=== PATIENT | male | born 2000 | race Caucasian/White ===

== ENCOUNTER 2024-03-15 08:27 | Observation (INO) ==
--- NOTE | 2024-03-15 08:33 | Emergency Department Note ---
History of Present Illness General Chief complaint: Abdominal Pain Stated complaint: LLQ Abd Pain Time Seen by Provider: 03/15/24 08:32 History of Present Illness Maximum Pain Intensity: 8 This is a 23-year-old male that presents to the emergency department via EMS with complaints of "left lower quadrant abdominal pain". The patient notes that today he awoke with sudden onset left lower quadrant abdominal pain. No trauma. No injury. He notes nausea but no vomiting. No diarrhea. Bowel movements have been regular. No history of kidney stones. No aggravating or alleviating factors. Patient denies any pertinent past medical history or surgeries. He notes history of penicillin allergy. Patient denies receiving any medicines in route here today. Home Medications Medication Instructions Recorded Confirmed Type dextroamphetamine-amphetamine 5 mg 0 mg PO DAILY 03/15/24 03/15/24 History tablet (Adderall) sertraline 25 mg tablet 25 mg PO DAILY 03/15/24 03/15/24 History Allergies Allergy/AdvReac Type Severity Reaction Status Date / Time Penicillins Allergy Severe Hives and Unverified 03/15/24 11:47 swelling Past Med/Surg History Problem List (Updated 03/15/24 @ 16:44 by Hebert Rosen PA-C) Hydronephrosis (Acute) Left ureteral calculus (Acute) Abdominal pain, acute, left lower quadrant (Acute) Ureterolithiasis Social History Smoking Status: Never smoker Preferred Language: Divehi Feels Safe at Home: Yes Review of Systems A total of 10 systems reviewed and were otherwise negative Physical Exam Vital Signs Vital Signs - 24 hr 03/15/24 08:29 03/15/24 09:00 03/15/24 10:08 Temperature 36.4 C L Temperature Source Oral Pulse Rate 110 H Pulse Rate [Apical] 110 H 110 H Respiratory Rate 18 18 14 Blood Pressure 138/88 Blood Pressure [Left Arm] 127/73 133/80 Blood Pressure Mean 104 Blood Pressure Mean [Left Arm] 91 97 Pulse Oximetry 100 100 98 Oxygen Delivery Method Room Air Room Air Room Air Sepsis New/Unexplained Change in Mental Status No Sepsis Action Taken by Nursing No Action Required 03/15/24 11:33 03/15/24 12:30 03/15/24 13:01 Temperature Temperature Source Pulse Rate Pulse Rate [Apical] 118 H 108 H 110 H Respiratory Rate 18 18 18 Blood Pressure Blood Pressure [Left Arm] 126/78 129/74 123/80 Blood Pressure Mean Blood Pressure Mean [Left Arm] 94 92 94 Pulse Oximetry 99 98 99 Oxygen Delivery Method Room Air Room Air Room Air Sepsis New/Unexplained Change in Mental Status Sepsis Action Taken by Nursing VITAL SIGNS - Vital signs and nursing notes were reviewed. Stable and afebrile. GENERAL - 23-year-old male appearing his stated age who appears to be in pain, laying in the position on the right side. Communicates well with provider and answers questions appropriately. SKIN - Without rashes. No meningeal or petechial rash. HEAD - NC/AT. EYES - PERRL with EOMI bilaterally. Sclera anicteric. EARS - No deformities of external structures noted on gross examination bilaterally. NOSE - Midline and without cyanosis. No epistaxis or purulent drainage noted. MOUTH/OROPHARYNX - Without perioral cyanosis. NECK - Neck with FROM. No nuchal rigidity. LUNGS - CTA CARDIAC - RRR ABDOMEN - Abdominal contour normal without pulsations or visible masses. BS normoactive all four quadrants. No tenderness, palpable masses, hepatosplenomegaly, or ascites noted. EXTREMITIES - No clubbing or peripheral cyanosis. +5/5 strength noted in UE/LE bilaterally. NEUROLOGIC - Cranial nerves grossly intact. PSYCH -alert, oriented and pleasant on exam Course Administered Medications Potassium Chloride (K Benji / Wtr) 10 meq in 100 mls @ 100 mls/hr IV Q[facility] Stop: 03/15/24 17:29 Last Admin: 03/15/24 15:49 Dose: 100 mls/hr Documented By: Infusion: 03/15/24 15:44 Dose: Infused Documented By: Admin: 03/15/24 14:44 Dose: 100 mls/hr Documented By: ROAXNN Potassium Chloride/Sodium Chloride (Normal Saline W/20 Meq Kcl) 20 meq in 1,000 mls @ 200 mls/hr IV .Q5H [facility] Stop: 03/16/24 14:38 Last Admin: 03/15/24 15:49 Dose: 200 mls/hr Documented By: STEPHAN Discontinued Medications Sodium Chloride (Nss) 1,000 mls @ 999 mls/hr IV .Q1H1M ONE Stop: 03/15/24 09:49 Last Infusion: 03/15/24 10:36 Dose: Infused Documented By: Admin: 03/15/24 09:03 Dose: 999 mls/hr Documented By: ROXANN Sodium Chloride (Nss) 1,000 mls @ 999 mls/hr IV .Q1H1M ONE Stop: 03/15/24 14:09 Last Infusion: 03/15/24 14:26 Dose: Infused Documented By: Admin: 03/15/24 13:25 Dose: 999 mls/hr Documented By: ROXANN Ioversol (Optiray 320 100ml) 94 ml IV ONCE ONE Stop: 03/15/24 09:45 Last Admin: 03/15/24 09:44 Dose: 94 ml Documented By: FAHAD Ketorolac Tromethamine (Ketorolac Tromethamine 15 Mg/Ml Vial) 10 mg IV NOW ONE Stop: 03/15/24 08:50 Last Admin: 03/15/24 09:05 Dose: 10 mg Documented By: ROXANN Metoclopramide HCl (Metoclopramide Hcl Inj 5 Mg/Ml 2 Ml Vial) 10 mg IV NOW STA Stop: 03/15/24 14:25 Last Admin: 03/15/24 14:42 Dose: 10 mg Documented By: ROXANN Morphine Sulfate (Morphine Sulfate 2 Mg/Ml Carp) 2 mg IV NOW STA Stop: 03/15/24 08:50 Last Admin: 03/15/24 09:06 Dose: 2 mg Documented By: ROXANN Morphine Sulfate (Morphine Sulfate 2 Mg/Ml Carp) 2 mg IV NOW STA Stop: 03/15/24 09:58 Last Admin: 03/15/24 10:06 Dose: 2 mg Documented By: ROXANN Ondansetron HCl (Ondansetron Inj 2 Mg/Ml 2 Ml Vial) 4 mg IV NOW STA Stop: 03/15/24 08:50 Last Admin: 03/15/24 09:04 Dose: 4 mg Documented By: ROXANN Ondansetron HCl (Ondansetron Inj 2 Mg/Ml 2 Ml Vial) 4 mg IV NOW STA Stop: 03/15/24 11:20 Last Admin: 03/15/24 11:31 Dose: 4 mg Documented By: ROXANN Tamsulosin HCl (Tamsulosin Hcl 0.4 Mg Cap) 0.4 mg PO NOW ONE Stop: 03/15/24 10:30 Last Admin: 03/15/24 10:59 Dose: 0.4 mg Documented By: ISABEL Medical Decision Making Laboratory Data 03/15/24 08:34 03/15/24 08:34 Lab Results 03/15/24 03/15/24 Range/Units 08:34 11:00 WBC 7.68 (4.8-10.8) K/ul RBC 5.46 (4.70-6.10) M/uL Hgb 15.2 (14.0-18.0) g/dl Hct 44.7 (42.0-52.0) % MCV 81.9 (80.0-100.0) fL MCH 27.8 (25.0-34.0) pg MCHC 34.0 (32.0-36.0) g/dL RDW Std Deviation 35.2 L (36.4-46.3) fL RDW Coeff of Dulce 11.9 (11.5-14.5) % Plt Count 266 (130-400) K/uL MPV 10.4 (9.4-12.4) fL Immature Gran % (Auto) 0.4 % Neut % (Auto) 48.5 % Lymph % (Auto) 39.8 % [place] % (Auto) 9.2 % Eos % (Auto) 1.6 % Baso % (Auto) 0.5 % Neut # (Auto) 3.72 (1.40-6.50) K/uL Lymph # (Auto) 3.06 (1.20-3.40) K/uL [place] # (Auto) 0.71 H (0.11-0.59) K/uL Eos # (Auto) 0.12 (0.00-0.50) K/uL Baso # (Auto) 0.04 (0.00-0.20) K/uL Immature Gran # (Auto) 0.03 (0.01-0.20) K/uL Sodium 139 (136-145) mmol/L Potassium 3.1 L (3.5-5.1) mmol/L Chloride 104 (98-107) mmol/L Carbon Dioxide 20 L (21-32) mmol/L Anion Gap 15 H (3-11) BUN 12 (6-23) mg/dl Creatinine 0.85 (0.6-1.4) mg/dl Est Cr Clr Drug Dosing 105.3 ml/min eGFR 126.00 BUN/Creatinine Ratio 14.1 (10-20) Glucose 149 H (70-99(Fasting)) mg/dl Calcium 9.4 (8.6-10.3) mg/dl Total Bilirubin 0.4 (0.2-1.0) mg/dl AST 19 (13-39) U/L ALT 16 (7-52) U/L Alkaline Phosphatase 73 (34-104) U/L Total Protein 7.1 (6.0-8.3) gm/dl Albumin 4.6 (3.4-5.0) gm/dl Globulin 2.5 (2.5-4.0) gm/dl Albumin/Globulin Ratio 1.8 (0.9-2) Lipase 16 (11-82) U/L Urine Color Yellow Urine Appearance Clear (Clear) Urine pH 6.5 (4.5-7.5) Ur Specific [place] > 1.045 H (1.000-1.030) Urine Protein 1+ H (Negative) Urine Glucose (UA) Negative (Negative) Urine Ketones 1+ H (Negative) Urine Blood 3+ H (Negative) Urine Nitrite Negative (Negative) Urine Bilirubin Negative (Negative) Urine Urobilinogen Negative (Negative) Ur Leukocyte Esterase Negative (Negative) Urine WBC (Auto) 0-5 (0-5) /hpf Urine RBC (Auto) >20 H (0-2) /hpf U Hyaline Cast (Auto) 0-2 (0-2) /lpf U Epithel Cells (Auto) 0-2 (0-2) /hpf Urine Bacteria (Auto) None Seen (None Seen) Urine Mucus Present A (None Prsent) Imaging Data Radiologist's Impression: Abdomen/Pelvis CT 03/15/24 08:[address] WITH IV CONTRAST CT DOSE: 369.71 mGy.cm HISTORY: Sudden onset L flank pain TECHNIQUE: Multiaxial CT images of the abdomen and pelvis were performed following the IV administration of 90 cc of Optiray, A dose lowering technique was utilized adhering to the principles of ALARA. COMPARISON STUDY: None FINDINGS: ABDOMEN: Liver, gallbladder, spleen, pancreas, and adrenal glands are unremarkable. There is early contrast in the right renal collecting system and right ureter which limits evaluation for small calculi. There is a 3 mm calculus distally in the left ureter causing minimal left hydronephrosis. No other renal or ureteral calculi seen bilaterally. No hydronephrosis on the right. No abdominal aortic aneurysm. Pelvis: Prostate is grossly unremarkable. Urinary bladder is decompressed. There is moderate retained stool. No bowel inflammation or obstruction. No free fluid, free air, or abscess. No enlarged adenopathy. Osseous structures: No acute osseous findings. IMPRESSION: 1. 3 mm calculus distal left ureter causes minimal left hydronephrosis. 2. No other acute findings seen. ACT 112: Negative or not required by law. The above report was generated using voice recognition software. It may contain grammatical, syntax or spelling errors. Electronically signed by: Erick Motley M.D. 03/15/2024 10:00 AM MDM Narrative Patient was seen and evaluated as above in room A10. Review was performed of triage nursing notes and vital signs. After obtaining a thorough history and physical examination the above work up was performed. Patient presents to us today for evaluation of sudden onset left lower quadrant abdominal pain. There is no reproducible pain on my assessment. Patient appears to be in pain and is laying in the position on the examination bed on his right side. IV access with established. Labs are drawn. Patient medicated here with IV Toradol for pain, IV fluids, IV Zofran, IV morphine. Patient reevaluated with some improvement but persisted with the nausea during his time here and therefore repeat dose was administered. Labs reveal no leukocytosis or concerning anemia. Hypokalemia, 3.1. Gap elevation at 15. CO2 20. Hyperglycemia 149. Lipase normal. Urinalysis reveals some blood, no evidence of infection. CT scan was obtained of the abdomen/pelvis with IV contrast. Results as above. 3 mm calculus distal left ureter causing minimal left hydronephrosis noted. No other acute findings seen per radiologist. This does clinically correlate with the patient's presentation. Patient during his time here continued with nausea and pain despite medicines. He was also given p.o. Flomax. Management options reviewed and at this time we will proceed with inpatient management for pain control/further management. Case discussed with the hospitalist service. Please refer to further documentation regarding his stay. GCS: 15 In the evaluation and treatment of this patient the following differential diagnoses were entertained: Diverticulitis, appendicitis, UTI, pyelonephritis, intestinal perforation, among others Impression & Plan Abdominal pain, acute, left lower quadrant, Left ureteral calculus, Hydronephrosis Discharge Plan Visit Data Chief Complaint: Abdominal Pain Stated Complaint: LLQ Abd Pain ED Provider: Jamaal Hendricks ED Midlevel Provider: Hebert Rosen Discharge Problem: Abdominal pain, acute, left lower quadrant, Left ureteral calculus, Hydronephrosis Patient Disposition: Admitted As Inpatient Condition: Good Discharge Instructions Interventions: ED Discharge Assessment Last Done: 03/15/24 14:39
[2024-03-15 08:59] LABS: Basophils # (auto) 0.04 K/uL (0.00-0.20); Basophils % (auto) 0.5 %; Eosinophils # (auto) 0.12 K/uL (0.00-0.50); Eosinophils % (auto) 1.6 %; Hematocrit (blood only) 44.7 % (42.0-52.0); Hemoglobin 15.2 g/dl (14.0-18.0); Immature Granulocytes # (auto) 0.03 K/uL (0.01-0.20); Immature Granulocytes % (auto) 0.4 %; Lymphocytes # (auto) 3.06 K/uL (1.20-3.40); Lymphocytes % (auto) 39.8 %; Mean Corpuscular Hemoglobin 27.8 pg (25.0-34.0); Mean Corpuscular Volume 81.9 fL (80.0-100.0); Mean Platelet Volume 10.4 fL (9.4-12.4); Monocytes # (auto) 0.71 K/uL (0.11-0.59); Monocytes % (auto) 9.2 %; Neutrophils # (auto) 3.72 K/uL (1.40-6.50); Neutrophils % (auto) 48.5 %; Platelet Count 266 K/uL (130-400); RDW Coefficient of Variation 11.9 % (11.5-14.5); RDW Standard Deviation 35.2 fL (36.4-46.3); Red Blood Count 5.46 M/uL (4.70-6.10); White Blood Count 7.68 K/ul (4.8-10.8)
[2024-03-15] MEDS: SODIUM CHLORIDE 0.9% 1,000 ML IV ONE ×2 (09:03→13:25)
[2024-03-15] MEDS: ONDANSETRON INJ 2 MG/ML 2 ML VIAL IV STA ×2 (09:04→11:31)
[2024-03-15] MEDS: KETOROLAC TROMETHAMINE 15 MG/ML VIAL IV ONE (09:05)
[2024-03-15] MEDS: MoRPHine SULFATE 2 MG/ML CARP IV STA ×2 (09:06→10:06)
[2024-03-15 09:18] LABS: Albumin Level 4.6 gm/dl (3.4-5.0); Bilirubin,Total 0.4 mg/dl (0.2-1.0); Calcium 9.4 mg/dl (8.6-10.3); Potassium 3.1 mmol/L (3.5-5.1)
[2024-03-15 09:24] LABS: Albumin Globulin Ratio 1.8 (0.9-2); BUN Creatinine Ratio 14.1 (10-20); Creatinine Clr Calc Pharmacy 105.3 ml/min; Globulin 2.5 gm/dl (2.5-4.0); Total Protein 7.1 gm/dl (6.0-8.3)
[2024-03-15] MEDS: OPTIRAY 320 100ml IV ONE (09:44)
--- NOTE | 2024-03-15 10:02 | CT Scan Report ---
ABDOMEN AND PELVIS CT WITH IV CONTRAST CT DOSE: 369.71 mGy.cm HISTORY: Sudden onset L flank pain TECHNIQUE: Multiaxial CT images of the abdomen and pelvis were performed following the IV administrat ion of 90 cc of Optiray, A dose lowering technique was utilized adhering to the principles of ALARA. COMPARISON STUDY: None FINDINGS: ABDOMEN: Liver, gallbladder, spleen, pancreas, and adrenal glands are unremarkable. There is early co ntrast in the right renal collecting system and right ureter which limits evaluation for small calcul i. There is a 3 mm calculus distally in the left ureter causing minimal left hydronephrosis. No other renal or ureteral calculi seen bilaterally. No hydronephrosis on the right. No abdominal aortic aneu rysm. Pelvis: Prostate is grossly unremarkable. Urinary bladder is decompressed. There is moderate retained stool. No bowel inflammation or obstruction. No free fluid, free air, or abscess. No enlarged adenop athy. Osseous structures: No acute osseous findings. IMPRESSION: 1. 3 mm calculus distal left ureter causes minimal left hydronephrosis. 2. No other acute findings seen. ACT 112: Negative or not required by law. The above report was generated using voice recognition software. It may contain grammatical, syntax o r spelling errors. Electronically signed by: Erick Motley M.D. 03/15/2024 10:00 AM
[2024-03-15] MEDS: TAMSULOSIN HCL 0.4 MG CAP PO ONE (10:59)
[2024-03-15 11:21] LABS: Appearance Urine Clear (Clear); Bacteria Urine Automated None Seen (None Seen); Bilirubin Urine Negative (Negative); Blood Urine 3+ (Negative); Cast Urine Automated 0-2 /lpf (0-2); Color Urine Yellow; Epithelial Cell Urine Auto 0-2 /hpf (0-2); Glucose Urine UA Negative (Negative); Ketones Urine 1+ (Negative); Leukocyte Esterase Urine Negative (Negative); Mucus Urine Present (None Prsent); Nitrite Urine Negative (Negative); Protein Urine 1+ (Negative); RBC Urine Automated >20 /hpf (0-2); Specific Gravity Urine > 1.045 (1.000-1.030); Urobilinogen Urine Negative (Negative); WBC Urine Automated 0-5 /hpf (0-5); pH Urine 6.5 (4.5-7.5)
--- NOTE | 2024-03-15 14:25 | History & Physical Report ---
Date of Service March 15, 2024 Assessment & Plan (1) Ureterolithiasis: Plan: IV fluids, clear liquids, NPO after midnight Pain: acetaminophen 1st line, Toradol 2nd line, Morphine 3rd line Anti-emetics: ondansetron 1st line, metoclopramide 2nd line Consult urology Strain all urine, stone analysis if he passes stone Plan VTE Prophylaxis - low risk Diet - clear liquids, NPO after midnight Disposition - admit to med/surg Admission and Anticipated Discharge Date Admission Date: March 15, 2024 History of Present Illness Chief Complaint: Abdominal pain Primary Care Provider: [facility] Jared Coats is a 23 year old male who presents to the ER with left lower quadrant abdominal pain. Symptoms started at 7am this morning. Severity 8/10 on arrival to the ER. No fever, chills or dysuria. CT in the ER positive for 3mm kidney stone at [facility]. No prior history of kidney stones. Despite x3 pain medications, 2L IV fluids he continues to have significant pain but also exces sive vomiting and unable to tolerate anything oral at this time. Allergies Allergy/AdvReac Type Severity Reaction Status Date / Time Penicillins Allergy Severe Hives and Unverified 03/15/24 11:47 swelling Home Medications Medication Instructions Recorded Confirmed Type dextroamphetamine-amphetamine 5 mg 0 mg PO DAILY 03/15/24 03/15/24 History tablet (Adderall) sertraline 25 mg tablet 25 mg PO DAILY 03/15/24 03/15/24 History Past Med/Surg History Problem List Hydronephrosis (Acute) Left ureteral calculus (Acute) Abdominal pain, acute, left lower quadrant (Acute) Ureterolithiasis Social History Smoking Status: Never smoker Hx Alcohol Use: Yes Alcohol type: beer Hx Substance Use: No Preferred Language: Lao Communication Ability: Effective Automated Equipment Engineer Technician Required: No Beliefs That Will Affect Care: None Current Living Situation: Alone Current Living Situation Comment: [facility] student Other Information That Helps Us Care for You: No Feels Safe at Home: Yes Safety Concerns: Feels Safe At This Time Assistive Devices: None Review of Systems Review of Systems: All systems reviewed & are unremarkable except as noted in HPI & below Physical Exam Constitutional: WD/WN, vitals as above Respiratory: normal respiratory effort, lungs clear to auscultation Cardiovascular: RRR, no murmur, no edema Gastrointestinal (Abdomen): Inspection/Auscultation: abdomen not distended Percussion/Palpation: + abdomen tender (left sided) and abdomen soft Genitourinary: + CVA tenderness (left) Results & Data Results & Data Vital Signs (Past 12 Hours) Vital Signs Temp Pulse Pulse Resp BP BP Pulse Ox 03/15/24 13:01 110 H 18 123/80 99 03/15/24 12:30 108 H 18 129/74 98 03/15/24 11:33 118 H 18 126/78 99 03/15/24 10:08 110 H 14 133/80 98 03/15/24 09:00 110 H 18 127/73 100 03/15/24 08:29 36.4 C L 110 H 18 138/88 100 O2 Del Method 03/15/24 13:01 Room Air 03/15/24 12:30 Room Air 03/15/24 11:33 Room Air 03/15/24 10:08 Room Air 03/15/24 09:00 Room Air 03/15/24 08:29 Room Air Laboratory Results Abnormal lab results 03/15/24 03/15/24 Range/Units 08:34 11:00 RDW Std Deviation 35.2 L (36.4-46.3) fL [place] # (Auto) 0.71 H (0.11-0.59) K/uL Potassium 3.1 L (3.5-5.1) mmol/L Carbon Dioxide 20 L (21-32) mmol/L Anion Gap 15 H (3-11) Glucose 149 H (70-99(Fasting)) mg/dl Ur Specific [place] > 1.045 H (1.000-1.030) Urine Protein 1+ H (Negative) Urine Ketones 1+ H (Negative) Urine Blood 3+ H (Negative) Urine RBC (Auto) >20 H (0-2) /hpf Urine Mucus Present A (None Prsent) Diagnostic Findings ABDOMEN AND PELVIS CT WITH IV CONTRAST CT DOSE: 369.71 mGy.cm HISTORY: Sudden onset L flank pain TECHNIQUE: Multiaxial CT images of the abdomen and pelvis were performed following the IV administration of 90 cc of Optiray, A dose lowering technique was utilized adhering to the principles of ALARA. COMPARISON STUDY: None FINDINGS: ABDOMEN: Liver, gallbladder, spleen, pancreas, and adrenal glands are unremarkable. There is early contrast in the right renal collecting system and right ureter which limits evaluation for small calculi. There is a 3 mm calculus distally in the left ureter causing minimal left hydronephrosis. No other renal or ureteral calculi seen bilaterally. No hydronephrosis on the right. No abdominal aortic aneurysm. Pelvis: Prostate is grossly unremarkable. Urinary bladder is decompressed. There is moderate retained stool. No bowel inflammation or obstruction. No free fluid, free air, or abscess. No enlarged adenopathy. Osseous structures: No acute osseous findings. IMPRESSION: 1. 3 mm calculus distal left ureter causes minimal left hydronephrosis. 2. No other acute findings seen. Medications Administered ER Medications Given: Toradol 10mg IV Normal saline 1L bolus Ondansetron 4mg IV Morphine 2mg IV Morphine 2mg IV Tamsulosin 0.4mg PO Ondansetron 4mg IV Normal saline 1L bolus Code Status & VTE Plan Code Status Full VTE Prophylaxis Plan VTE Prophylaxis will be ordered: No PG Care Time/CCT Total # of Minutes Spent Total Time Spent with Patient: Total time spent is greater than 50% in coordination of care (as documented) at patient's floor/unit and/or counseling patient: Coding Level of Care Code 21149 INT INP/OBS CARE 2MIN Diagnoses Ureterolithiasis N20.1
[2024-03-15] MEDS ORDERED: MoRPHine SULFATE 4 MG/ML 1 ML CARP\\VIAL IV PRN (14:39)
[2024-03-15] MEDS ORDERED: ONDANSETRON INJ 2 MG/ML 2 ML VIAL IV PRN (14:39)
[2024-03-15] MEDS ORDERED: KETOROLAC TROMETHAMINE 15 MG/ML VIAL IV PRN (14:39)
[2024-03-15] MEDS ORDERED: MoRPHine SULFATE 2 MG/ML CARP IV PRN (14:39)
[2024-03-15] MEDS: METOCLOPRAMIDE HCL INJ 5 MG/ML 2 ML VIAL IV STA (14:42)
[2024-03-15] MEDS: POTASSIUM CHLORIDE / WTR 10 MEQ/100 ML PLCT IV SCH (14:44)
[2024-03-15] MEDS: NSS + 20MEQ KCL 20 MEQ/1,000 ML BAG IV SCH (15:49)
[2024-03-15 18:15] VITALS: PULSE 98; TEMP 98.1; O2SAT 98
[2024-03-15] MEDS: ACETAMINOPHEN 325 MG TAB PO PRN (18:21)
--- NOTE | 2024-03-15 20:43 | Urology Consultation ---
Date of Consultation March 15, 2024 Assessment & Plan (1) Left ureteral calculus: The patient has been admitted on hospital service. From a urologic perspective we recommend the following: Provide analgesics Provide antiemetics Provide IV fluid for hydration supplementing his potassium Strain all urine and save any kidney stones for analysis (this has been ordered) I discussed with the patient that he does have a relatively small kidney stone with minimal hydronephrosis and hopefully he will pass the kidney stone on its own. If the patient is unable to pass a kidney stone and is continuing to have significant pain consideration can be given to performing cystoscopic on 03/16/2024 We empirically make the patient n.p.o. after midnight tonight in the event that he does require cystoscopy tomorrow The patient has received Flomax in the emergency department and will continue this medication for expulsive therapy At the present time the patient is normotensive without fever and only has a slight tachycardia. He does not have leukocytosis or acute kidney injury. In addition, due to the small size of the patient's kidney stone I feel conservative measures are warranted at this time Additional recommendations with forthcoming based on his clinical course as it unfolds History of Present Illness Reason for Consultation: Nephrolithiasis Attending Physician: Adolfo Fleming MD History of Present Illness This is a 23-year-old male who presented to the emergency department secondary to left flank pain that began earlier this morning. As noted previously the patient is having left flank that radiates to the front of his abdomen. He was having some nausea and vomiting but denies any fevers, shakes, or chills. He denies any dysuria or hematuria. He would not have any other difficulties urinating. He has no prior history of kidney stones. Upon presentation to the emergency department he had labs and imaging which I independently reviewed. CT scan of the abdomen pelvis showed he had a 3 mm kidney stone in the distal left ureter with minimal left hydronephrosis. Labs included CBC white blood cell count, hemoglobin, macro, and platelet count are all normal. Chemistry profile showed sodium was normal with a potassium of 3.1. BUN and creatinine are both within the normal range. Urinalysis was not indicative of infection. At the time of my interview he was resting comfortably in bed and he was in no distress. Concerning past medical history he denies any current medical problems. Concerning past surgical history he denies any prior surgeries Concerning social history he denies smoking Allergies Allergy/AdvReac Type Severity Reaction Status Date / Time Penicillins Allergy Severe Hives and Unverified 03/15/24 11:47 swelling Home Medications Medication Instructions Recorded Confirmed Type dextroamphetamine-amphetamine 5 mg 0 mg PO DAILY 03/15/24 03/15/24 History tablet (Adderall) sertraline 25 mg tablet 25 mg PO DAILY 03/15/24 03/15/24 History Patient History Social History Smoking Status: Never smoker Hx Alcohol Use: Yes Alcohol type: beer Hx Substance Use: No Preferred Language: Lithuanian Communication Ability: Effective Intern Product Marketing Manager Required: No Beliefs That Will Affect Care: None Current Living Situation: Alone Current Living Situation Comment: [facility] student Other Information That Helps Us Care for You: No Feels Safe at Home: Yes Safety Concerns: Feels Safe At This Time Assistive Devices: None Review of Systems Review of Systems: All systems reviewed & are unremarkable except as noted in HPI & below Physical Exam Constitutional: WD/WN, vitals as above Eyes: no conjunctival abnormality ENMT: Ears: no hearing impairment and no external ear abnormality Mouth: no oropharynx abnormality Neck: trachea midline Respiratory: normal respiratory effort; no respiratory distress and no labored breathing Cardiovascular: Rate/Rhythm: regular rate and regular rhythm Gastrointestinal (Abdomen): Abdomen is soft and nondistended. There is no pain with palpation. There is no rebound tenderness or guarding. Musculoskeletal: No calf tenderness Skin: no rashes Neurologic: moves all extremities Psychiatric: A+Ox3, euthymic affect Genitourinary: Minimal CVA tenderness with percussion on the left. No CVA tenderness with percussion on the right Results & Data Vital Signs (Past 12 Hours) Vital Signs Temp Pulse Resp BP Pulse Ox O2 Del Method 03/15/24 17:57 36.7 C 98 H 20 122/66 98 Room Air 03/15/24 15:54 108 H 19 129/60 100 Room Air 03/15/24 14:47 112 H 14 127/75 100 Room Air 03/15/24 13:01 110 H 18 123/80 99 Room Air 03/15/24 12:30 108 H 18 129/74 98 Room Air 03/15/24 11:33 118 H 18 126/78 99 Room Air 03/15/24 10:08 110 H 14 133/80 98 Room Air 03/15/24 09:00 110 H 18 127/73 100 Room Air PG Care Time/CCT Total # of Minutes Spent Total Time Spent with Patient: Total time spent is greater than 50% in coordination of care (as documented) at patient's floor/unit and/or counseling patient: Coding Level of Care Code 54504 IN/OBS CONSULT LVL 5,80M Diagnoses Left ureteral calculus N20.1
[2024-03-16 06:52] VITALS: BP 101/61; RESP 18
[2024-03-16 09:16] LABS: Calcium 8.7 mg/dl (8.6-10.3); Creatinine Clr Calc Pharmacy 130.2 ml/min; Potassium 4.1 mmol/L (3.5-5.1)
[2024-03-16 09:26] LABS: Basophils # (auto) 0.02 K/uL (0.00-0.20); Basophils % (auto) 0.2 %; Eosinophils # (auto) 0.06 K/uL (0.00-0.50); Eosinophils % (auto) 0.7 %; Hematocrit (blood only) 38.1 % (42.0-52.0); Hemoglobin 12.6 g/dl (14.0-18.0); Immature Granulocytes # (auto) 0.02 K/uL (0.01-0.20); Immature Granulocytes % (auto) 0.2 %; Lymphocytes # (auto) 1.75 K/uL (1.20-3.40); Lymphocytes % (auto) 20.2 %; Mean Corpuscular Hemoglobin 28.6 pg (25.0-34.0); Mean Corpuscular Hgb Conc 33.1 g/dL (32.0-36.0); Mean Corpuscular Volume 86.4 fL (80.0-100.0); Mean Platelet Volume 11.1 fL (9.4-12.4); Monocytes # (auto) 1.05 K/uL (0.11-0.59); Monocytes % (auto) 12.1 %; Neutrophils # (auto) 5.75 K/uL (1.40-6.50); Neutrophils % (auto) 66.6 %; Platelet Count 199 K/uL (130-400); RDW Coefficient of Variation 11.9 % (11.5-14.5); RDW Standard Deviation 37.9 fL (36.4-46.3); Red Blood Count 4.41 M/uL (4.70-6.10); White Blood Count 8.65 K/ul (4.8-10.8)
[2024-03-16] MEDS: SERTRALINE HCL 50 MG TABLET PO SCH (09:41)
[2024-03-16] MEDS: TAMSULOSIN HCL 0.4 MG CAP PO SCH (09:41)
--- NOTE | 2024-03-16 15:10 | Urology Progress Note ---
Date of Service March 16, 2024 Assessment & Plan (1) Left ureteral calculus: (2) Hydronephrosis: Plan Follow-up for left ureteral calculus Fortunately patient reports passing the stone this morning- was sent for stone analysis He reports symptoms have resolved Remains afebrile and hemodynamically stable Labs showing no leukocytosis and normal renal function Voiding without issue No acute intervention warranted Okay for discharge home from standpoint Will arrange outpatient follow-up with our service Urology will sign-off. Please call with any questions or concerns. Admission and Anticipated Discharge Date Admission Date: March 15, 2024 Subjective Patient seen at bedside today Awake and resting in bed on arrival No acute distress He reports passing the stone Symptoms have resolved Review of Systems Constitutional: as per Subjective / HPI Genitourinary: + as per Subjective / HPI Physical Exam Constitutional: no acute distress Respiratory: no respiratory distress and no labored breathing Neurologic: awake Psychiatric: A+Ox3, euthymic affect Results & Data Vital Signs (Past 12 Hours) Vital Signs Temp Pulse Resp BP Pulse Ox O2 Del Method 03/16/24 10:47 36.7 C 18 101/61 98 03/16/24 06:50 36.7 C 98 H 18 101/61 98 Room Air PG Care Time/CCT Total # of Minutes Spent Total Time Spent with Patient: Total time spent is greater than 50% in coordination of care (as documented) at patient's floor/unit and/or counseling patient: Coding Level of Care Code 44021 SUB INP/OBS CARE 2/35MIN Diagnoses Left ureteral calculus N20.1 Hydronephrosis N13.30
--- NOTE | 2024-03-16 18:45 | Discharge Summary ---
Discharge Summary Date of Service March 16, 2024 Principal Dx & Hospital Course #1 = Principal Diagnosis (1) Ureterolithiasis: 23-year-old healthy male presented with ureterolithiasis, CT showed 3 mm stone at the vesicoureteral junction with minimal hydronephrosis treated with IV fluids, Flomax urology consulted symptom control with IV antiemetics, IV Toradol, he did not use any opioids he passed the stone overnight with immediate improvement of his symptoms the stone was collected for analysis I discussed with urology todayhe will follow-up with urology in the office Plan he is on Adderall for ADD symptoms and sertraline for mood disorder - either of these are associated with nephrolithiasis I counseled him about adequate fluid intake, provided handout on dietary measures to prevent nephrolithiasis Admission HPI Per Admitting Provider Jared Coats is a 23 year old male who presents to the ER with left lower quadrant abdominal pain. Symptoms started at 7am this morning. Severity 8/10 on arrival to the ER. No fever, chills or dysuria. CT in the ER positive for 3mm kidney stone at [facility]. No prior history of kidney stones. Despite x3 pain medications, 2L IV fluids he continues to have significant pain but also excessive vomiting and unable to tolerate anything oral at this time. Discharge Exam PHYSICAL EXAMINATION Last 24h vital signs reviewed, see documentation in flowsheet General: comfortable appearing, no distress HEENT: Normocephalic, atraumatic, pupils round and equal, sclerae anicteric, no conjunctival injection, moist mucus membranes Lungs: Normal respiratory effort. Clear to auscultation bilaterally. No RRW Heart: Regular rate and rhythm, no murmurs. No JVD Abdomen: Soft, nontender, nondistended. Bowel sounds present. Extremities: Warm, dry, well-perfused. No extremity edema. Neuro: Alert and oriented x 4, face symmetric, moves 4 extremities well Psych: Normal affect and behavior Discharge Plan Discharge Items Patient Disposition: Home - Self-Care Reason For Visit: URETEROLITHIASIS Discharge Diagnosis: Ureterolithiasis Condition on Discharge: Good Activity: Resume your previous activity Non-emergency contact: Primary Care Provider Call non-emergency contact if: you have any medication questions and your symptoms worsen Follow-up/Referrals: Leon Dumas MD [Physician] - [place] [Primary Care Provider] - Diet: Regular Addtl Attending Provider Instructions: You passed a 3 mm kidney stone The stone was sent for chemical analysis. Depending on the chemistry of the stone, there may be dietary changes or medications which could help prevent recurrence. Follow up with [facility] and the Urologist - their office should be contacting you to schedule and appointment. Drink plenty of fluids, which can help prevent stones. See the handout reg arding some dietary changes which can help prevent new stones from forming You had low blood potassium from vomiting - we replaced it with IV and potassium is normal today It was a pleasure taking care of you in the hospital Coty Felton MD Pending Studies at Discharge: Yes (stone analysis) Stand-Alone Forms: My [facility], Smoking Cessation Medications and DC Order Prescriptions: Continued sertraline 25 mg tablet 25 mg PO DAILY dextroamphetamine-amphetamine [Adderall] 5 mg Tablet 0 mg PO DAILY Rx Instructions: Pt unsure of strength Discharge Orders: Discharge Order (Routine); Ordered 03/16/24 Ordered By: Coty Zuñiga/Other Patient Handouts: ED Kidney Stone, Passed Admission Data Admit Date/Time: 03/15/24 14:23 Attending Provider: Coty Felton Admit Provider: Adolfo Fleming Primary Care Provider: [facility] Other Providers: Adolfo Fleming; Leon Dumas Other Interventions: Discharge Summary Assessment (RN) Last Done: 03/16/24 10:47 Hospital Stay Data Consultations 03/15/24 12:30 ED Decision to Admit Stat 03/15/24 19:15 Consult Urology Routine Diagnostic Imagining Performed 03/15/24 08:49 CT abd pelvis IV con only Stat Pending Results Patient Have Any Pending Studies at Discharge: Yes (stone analysis) Discharge Instructions Given to Patient (Per Discharging Provider) You passed a 3 mm kidney stone The stone was sent for chemical analysis. Depending on the chemistry of the stone, there may be dietary changes or medications which could help prevent recurrence. Follow up with [facility] and the Urologist - their office should be contacting you to schedule and appointment. Drink plenty of fluids, which can help prevent stones. See the handout regarding some dietary changes which can help prevent new stones from forming You had low blood potassium from vomiting - we replaced it with IV and potassium is normal today It was a pleasure taking care of you in the hospital Coty Felton MD Total Time Total Time Spent Total Time Spent (In Minutes): less than 30 minutes Coding Level of Care Code 09692 IN/OBS DISCH 30 MIN/LESS Diagnoses Ureterolithiasis N20.1
== END 2024-03-16 12:15 | disposition home or self-care (01) | DRG 694 ==
LOC: ED 08:27 → SUATTDRO 14:23 → INTOOBSV 14:23 → EDINP 14:23 → 3N 17:56